=== PATIENT | male | born 1990 | race Caucasian/White ===

== ENCOUNTER 2019-08-17 09:21 | Day surgery (SDC) | payer BC, SELFPAY ==
[2019-08-02 07:59] VITALS: BMI 32.8
--- NOTE | 2019-08-02 08:06 | HP_ITS ---
Intake Vital Signs 08/02/19 Body Mass Index (BMI) 32.8 Intake Visit Reasons: Rectal Bleeding Chief Complaint: recheck rectal bleeding Personal Lines Underwriter Required: No Is patient in pain?: No Allergies venom-honey bee [bee venom (honey bee)] Allergy (Verified 08/02/19 07:59) Anaphylaxis Medications No Known/Unobtainable [No Known Home Medications] 03/16/16 [History Confirmed 08/02/19] [facility] Medical History Rectal bleeding (Acute) Hemorrhoids (Acute) Surgical History History of hernia repair (Acute) History of tonsillectomy and adenoidectomy (Acute) history excision cyst on chin (Acute) Family History Mother Heart disease Social History (Updated 08/02/19 @ 08:06 by Gagan Masterson MD) Smoking Status: Never smoker alcohol intake: current alcohol intake frequency: a few times a week Alcohol type: beer substance use type: does not use HPI HPI HPI: ABDELRAHMAN FANG, is a 28 M who presents to the office today for HPI HPI Surgical H&P: Yes HPI: ABDELRAHMAN FANG, is a 28 M who presents to the office today for Follow-up from a perianal excoriation. He has been using maximum strength Desitin at nighttime he still is not doing any warm soaks he has not noticed any improvement in his rectal bleeding. ROS General General: No weight change, appetite, fatigue, colon cancer, breast cancer or weakness HEENT HEENT: No difficulty swallowing, eye injury, eye surgery, swollen glands or hoarseness Endo Endocrine: No thyroid disease, diabetes mellitus, thyroid cancer, Hair loss, heat intolerance or cold intolerance Skin Skin: No rash or changing moles Breast Breast: No left breast lump, right breast lump, nipple discharge, breast pain, abnormal mammogram, abnormal US or breast enlargement Musc Musculoskeletal: No back problems, arthritis, rheumatoid arthritis, gout or joint pain Cardio Cardiovascular: No murmur, pacemaker, heart disease, atrial fibrillation, high blood pressure, heart attack, heart stent, palpitations, shortness of breat with exertion or chest pain Psych Psychiatric: No depression, anxiety or hearing voices Resp Respiratory: No shortness of breath, No sleep apnea, No cough, No COPD, No asthma, No emphysema, No wheezing Gastro Gastrointestinal: No abdominal pain, No nausea or vomiting, No diarrhea, No constipation, No blood in stool, No acid reflux, Yes hemorrhoids, No ulcers, No gallbladder problem, No black,tarry stools Vignesh Hematologic: No blood thinners, No blood disorders, No bleeding, No anemia, No blood clots Neuro Neurologic: No weakness Exam Const General: no acute distress, well developed, well hydrated Orientation: oriented to person, oriented to place, oriented to time [facility] Head: normocephalic, atraumatic Ears: external ears normal Mouth: moist mucous membranes Eyes Sclera: sclerae normal Pupils: normal by confrontation Neck Neck: no lymphadenopathy noted Neck mass: No Thyroid: thyroid normal, symmetrical Chest Chest palpation & inspection: normal inspection of the chest Breast Palpation: No nipple discharge Resp Effort & Inspection: normal respiratory effort Auscultation: clear to auscultation bilaterally Percussion: percussion normal Cardio Rate: regular rate Rhythm: regular rhythm Heart Sounds: no murmurs GI Palpation: soft, no hepatosplenomegaly, no masses, nontender Rectal Exam: other Other: Rectal exam deferred. Extrem General: normal to inspection, no clubbing, cyanosis or edema Assessment & Plan Problems 1. Rectal hemorrhage K62.5 2. Perianal excoriation S30.817A Plan I have discussed the above with the patient. I have offered the patient colonoscopy for evaluation. I have explained the risks/benefits of the procedure and described the procedure. I have discussed the risks with the patient, including but not limited to: infection, bleeding, perforation of the GI tract requiring emergency surgery, inability to complete the procedure, injury to any internal organs, complications of anesthesia, etc. - the patient understands and agrees to proceed. I have answered all the patient's questions to the patient's satisfaction and the patient has no further questions. The patient has been given instructions for the colon cleansing preparation. Coding Level of Care Code Off vis,est,level 3 Diagnoses Rectal hemorrhage K62.5 Perianal excoriation S30.817A 08/02/19 0806 <Electronically signed by Gagan leon MD> Date _ Gagan Masterson MD I have re-examined the patient. There are no clinical changes since date of exam.
[2019-08-17 09:56] VITALS: BP 135/78; PULSE 72; RESP 15; TEMP 37.1; O2SAT 98; BMI 37.6
[2019-08-17] MEDS: Lactated Ringers 1,000 ML 100 ML IV (10:08)
[2019-08-17 11:00] VITALS: BP 118/73; BP 135/78; PULSE 79; RESP 16; TEMP 36.8; O2SAT 97
[2019-08-17 11:05] VITALS: BP 130/71; BP 135/78; PULSE 86; RESP 16; O2SAT 97
--- NOTE | 2019-08-17 11:05 | OP.COLON_ITS ---
Patient Name: Alex Escobar Procedure Date: 08/17/2019 10:39 AM Date of : 1990 Age: 28 Procedure: Colonoscopy Indications: Rectal bleeding Providers: Gagan Masterson MD Referring MD: Geronimo Solorzano Iii Medicines: See the Anesthesia note for documentation of the administered medications Patient Profile: This is a 28 year old male. Refer to note in patient chart for documentation of history and physical. Last Colonoscopy: none. The patient's first colonoscopy is today. Complications: No immediate complications. Procedure: Pre-Anesthesia Assessment: - Prior to the procedure, a History and Physical was performed, and patient medications and allergies were reviewed. The patient's tolerance of previous anesthesia was also reviewed. The risks and benefits of the procedure and the sedation options and risks were discussed with the patient. All questions were answered, and informed consent was obtained. Prior Anticoagulants: The patient has taken no previous anticoagulant or antiplatelet agents. ASA Grade Assessment: II - A patient with mild systemic disease. After reviewing the risks and benefits, the patient was deemed in satisfactory condition to undergo the procedure. After I obtained informed consent, the scope was passed under direct vision. Throughout the procedure, the patient's blood pressure, pulse, and oxygen saturations were monitored continuously. The adult colonoscope was introduced through the anus and advanced to the cecum, identified by appendiceal orifice and ileocecal valve. The colonoscopy was performed without difficulty. The patient tolerated the procedure well. The quality of the bowel preparation was good. Scope In: 10:45:35 AM Scope Withdrawal Time 0 hours 6 minutes 7 seconds Scope Out: 10:56:29 AM Total Procedure Duration Time 0 hours 10 minutes 54 seconds Findings: An anal fissure was found on perianal exam. The patient still had significant amount of excoriation perianally. And a rectal fissure was newly found this time. He has been on zinc oxide for a long period of time but has not been effective in treating his perianal excoriation Non-bleeding internal hemorrhoids were found during retroflexion. The hemorrhoids were mild and small. The exam was otherwise without abnormality. Impression: - Anal fissure found on perianal exam. - The examination was otherwise normal on direct and retroflexion views. - No specimens collected. Recommendation: - Discharge patient to home. - Resume previous diet. - Continue present medications. - Await pathology results. - Repeat colonoscopy at appointment to be scheduled for screening purposes. - Return to my office in 1 week. Procedure Code(s): --- Professional --- 63747, Colonoscopy, flexible; diagnostic, including collection of specimen(s) by brushing or washing, when performed (separate procedure) Diagnosis Code(s): --- Professional --- K60.2, Anal fissure, unspecified K62.5, Hemorrhage of anus and rectum CPT copyright 2017 [employer]. All rights reserved. The codes documented in this report are preliminary and upon machine heel builder review may be revised to meet current compliance requirements. MD Gagan Mercedes MD 08/17/2019 11:04:30 AM This report has been signed electronically. Number of Addenda: 0 Note Initiated On: 08/17/2019 10:39 AM
[2019-08-17 11:10] VITALS: BP 122/83; BP 135/78; PULSE 73; RESP 16; O2SAT 98
[2019-08-17 11:15] VITALS: BP 126/85; BP 135/78; PULSE 71; RESP 16; TEMP 36.4; O2SAT 98
[2019-08-17 11:38] VITALS: BP 135/78
== END 2019-08-17 11:39 | disposition home or self-care (01) ==
LOC: EN 09:21 → AC 09:38
PROVIDERS: Family Provider Family Medicine; PCP Family Medicine; Referring Provider Family Medicine; Visit Provider Surgery
PROC: 0DJD8ZZ Inspection of Lower Intestinal Tract, Via Natural or Artificial Opening Endoscopic (ICD-10-PCS; CPT 45378; principal; 2019-08-17 10:40)
DX: K60.2 Anal fissure, unspecified (principal); S30.817A Abrasion of anus, initial encounter; X58.XXXA Exposure to other specified factors, initial encounter; Y93.9 Activity, unspecified; Y92.9 Unspecified place or not applicable; K64.8 Other hemorrhoids
CPT/HCPCS: 45378; J7120

== ENCOUNTER 2019-09-03 07:47 | Emergency (ER) | payer BC, SELFPAY ==
[2019-09-03 07:48] VITALS: BP 154/81; PULSE 74; RESP 18; TEMP 36.8; O2SAT 96; BMI 38.2
[2019-09-03] MEDS: MethylPREDNISolone 125 MG/2 ML Vial IV (08:30)
[2019-09-03] MEDS: Famotidine 200 MG/20 ML MDV 20 MG in 0.9% Normal Saline (Pres. free 8 ML 300 MG IV (08:30)
[2019-09-03] MEDS: DiphenhydrAMINE 50 MG/ML Syringe IV (08:30)
[2019-09-03] MEDS: 0.9% Normal Saline 1,000 ML 999 ML IV (08:33)
--- NOTE | 2019-09-03 08:45 | ED.DCSUM_ITS ---
- ER Visit Summary Date of Service: 09/03/19 Chief Complaint: Bee sting History of Present Illness: The patient is a [address] Geronimo Solorzano. Reports at 7:00 this morning he was putting on a hunting coat when he was stung by a bee to the anterior surface of his right wrist. States that he had severe reactions in the past. Currently he denies any rash other than where the sting was. He denies chest pain or shortness of breath. He is not lightheaded. On review of systems patient reports that he has a cough is been present for approximately 1 week. Is productive of white sputum without blood. He denies any shortness of breath. He does have nasal congestion. He reports the symptoms are improving. He denies any fever or chills. Physical Examination: Vitals: Stable. Afebrile. General: Well-nourished and well-developed. Head: Normocephalic atraumatic. Neck: Supple, no lymphadenopathy. No JVD. Nontender. Cardiovascular: Regular rate and rhythm. No murmurs. Respiratory: No respiratory distress. Clear to auscultation bilaterally. Abdominal: Soft, nontender, nondistended, normal bowel sounds. No guarding, rebound, or peritoneal signs. Back: Nontender. Extremities: Nontender, no edema. Skin: 3 cm erythematous lesion to the anterior surface of his right wrist where he was stung. There are no other urticarial lesions. He does have erythema just nasolabial folds bilaterally consistent with seborrheic dermatitis. Neurologic: Alert and oriented ?3. Cranial nerves II through XII are intact. Normal strength and sensation. Psych: Normal affect. Emergency Department Course and Treatment: Patient had an IV placed. He was given Solu-Medrol, Benadryl, and Pepcid IV. His symptoms have completely resolved. Treatment Plan: Patient will be discharged on a 5-day burst of prednisone, Zyrtec, and Pepcid. He is also given a prescription for ketoconazole for the seborrheic dermatitis. Instructed to follow-up with his primary care physician 1 to 2 days if not improving. Return to the emergency department for any worsening symptoms. Disposition: To home in improved and stable condition. Impression: 1. Localized reaction to bee sting. 2. Seborrheic dermatitis. This note was generated with [employer] software. It may contain incorrect words, spelling, and punctuation that were not noted in review of the chart prior to signing ED Disposition - Plan for ED Patient: Instructions: ALLERGIC REACTION, Insect (Local) Prescriptions: Prednisone [Deltasone] 60 mg PO DAILY #15 tablet Ketoconazole [Nizoral Cream] 1 applic TOPICAL BID #1 tube Famotidine [Pepcid] 20 mg PO BID #28 tablet Cetirizine HCl [Zyrtec] 10 mg PO DAILY #14 capsule Referrals: Geronimo Solorzano III, MD [Primary Care Provider] - 1-2 Days if not improving
[2019-09-03 09:15] VITALS: BP 138/88; PULSE 76; RESP 23; O2SAT 97
== END 2019-09-03 10:02 | disposition home or self-care (01) ==
LOC: ED 08:28
PROVIDERS: Emergency Provider Emergency Medicine; Family Provider Family Medicine; PCP Family Medicine
DX: T63.441A Toxic effect of venom of bees, accidental (unintentional), initial encounter (principal); L21.9 Seborrheic dermatitis, unspecified; Y92.9 Unspecified place or not applicable; R05 Cough; R09.81 Nasal congestion
CPT/HCPCS: 96361; 96374; 96375; 99283; J7030; J7050; A4216; J3490

== ENCOUNTER 2019-12-17 06:02 | Emergency (ER) | payer BC, SELFPAY ==
[2019-11-14 13:33] VITALS: BMI 38.2
[2019-12-17 06:03] VITALS: BP 156/88; PULSE 102; RESP 16; TEMP 36.7; O2SAT 97; BMI 39.2
--- NOTE | 2019-12-17 06:20 | ED.VIS.GEN ---
History of Present Illness Chief Complaint: GI Bleed Detail of Chief Complaint: rectal bleeding Informant: Patient Onset: Today Timing: Intermittent - x2 Quality: BRBPR Location: anal Current Severity: gone Maximum Severity: Moderate Worsened by: unk Relieved by: unk Associated Symptoms: none Narrative: Patient had an anal fissure surgery done 5-6 days ago at [facility]. He has had some postoperative soreness but nothing major. 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 He noticed at one point he felt wet and went to the bathroom and there was blood. He had everything wiped up and it was fine. Later he noticed more blood. He presents for evaluation of this as directed by his surgeon if he had any issues. It is early Thursday morning when he presents. He denies any abdominal symptoms, fevers, or other discharge. He shows me a picture of toilet tissue that has blood on it but is certainly not saturated. - Past Medical History (1) Anal fissure Status: Chronic Past Medical History - Allergies and Home Meds Allergies/Adverse Reactions: Allergies venom-honey bee [bee venom (honey bee)] Allergy (Verified 12/17/19 06:08) Anaphylaxis Primary Care Physician: Geronimo Solorzano III, MD [Primary Care Provider] - Surgical History: - - Anal fissure Lives: Alone Smoking Status: Never smoker Review of Systems General: Reports: Malaise - feeling weird this AM, may be my nerves. Denies: Chills, Fever, Sweats Eyes: Denies: Visual changes - bilaterally, Diplopia ENT: Denies: Rhinorrhea, Sore throat Cardiovascular: Denies: Chest pain, Palpitations Respiratory: Denies: Dyspnea, Cough, Dyspnea on exertion Gastrointestinal: Reports: Hematochezia, - - postoperative perianal pain, no worse. Denies: Abdominal pain, Nausea, Vomiting, Diarrhea, Melena Genitourinary: Denies: Dysuria, Hematuria, Frequency Musculoskeletal: Denies: Back pain, Swelling, Extremity Pain Skin: Denies: Rash, Wounds Neurological: Denies: Headache, Weakness, Numbness Physical Exam Vital Signs/Narrative: Vital Signs Temp Pulse Resp BP Pulse Ox 12/17/19 06:03 98.1 F 102 H 16 156/88 H 97 Inital Vital Signs reviewed: Yes General: Well nourished, Well developed, No Acute Distress Head: Normocephalic, Atraumatic Eyes: Perrl, EOMI ENT: Moist mucous membranes, No rhinorrhea Cardiovascular: Regular rate, Regular rhythm, No murmurs. Negative for: Tachycardia Respiratory: No distress, CTA bilaterally, Chest nontender Abdomen: Soft, Nontender, Nondistended, Normal bowel sounds Rectal: - - Postoperative anal fissure noted at the 3 o'clock position, there is minimal tenderness in this area, consistent with postoperative state. With firm palpation, there is no discharge or bleeding. There is no collection. No abscess. No erythema or signs of infection. The rest of the perianal area is nontender and benign-appearing. Back: Nontender, Normal Inspection Extremities: Nontender, No edema Skin: Normal color, No rash, No Trauma Neurological: Alert, Oriented x3, Cranial nerves II-XII grossly intact, Normal Strength, Normal Sensation, Normal Gait Psychological: Normal affect, Normal Mood Diagnostic/Tx/Re-eval Laboratory Tests 12/17/19 12/17/19 Range/Units 06:30 06:30 WBC 11.2 H (4.4-11.0) K/mm3 RBC 4.89 (4.6-6.2) M/mm3 Hgb 14.4 (13.0-16.5) g/dL Hct 43.0 (40-54) % MCV 87.9 (80-94) fL MCH 29.4 (27.0-32.0) pg MCHC 33.5 (32-36) g/dL RDW Std Deviation 41.3 (35.1-43.9) fl RDW Coeff of Gisela 13.0 (11.6-14.6) % Plt Count 310 (150-450) K/mm3 MPV 9.6 (6.2-12.0) fl Immature Gran % (Auto) 0.700 (0.0-0.9) % Neut % (Auto) 63.8 (47-70) % Lymph % (Auto) 25.6 (19-41) % [place] % (Auto) 6.4 (0-10) % Eos % (Auto) 3.0 (0-5) % Baso % (Auto) 0.5 (0-1) % Absolute Neuts (auto) 7.1 (2.0-7.7) X10^3/uL Absolute Lymphs (auto) 2.85 (0.83-4.51) X10^3/uL Nucleated RBC % 0 (0-5) % Sodium 137 (136-145) mmol/L Potassium 4.6 (3.5-5.1) mmol/L Chloride 106 (98-107) mmol/L Carbon Dioxide 27.0 (21.0-32.0) mmol/L Anion Gap 4 L (5-15) BUN 14 (7-18) mg/dL Creatinine 0.95 (0.70-1.30) mg/dL Estim Creat Clear Calc 106.30 ml/min Est GFR (MDRD) Af Amer 120 (>60) mL/min Est GFR (MDRD) Non-Af 99 (>60) mL/min BUN/Creatinine Ratio 14.8 (10-20) RATIO Glucose 120 H (74-106) mg/dL Calcium 8.3 L (8.5-10.1) mg/dL - Medical Decision Making Patient's exam is very benign. It appears to be a very healthy appearing postoperative wound that is very small, radiating around 1 cm from the anal cleft. It does not appear to be contaminated or infected and there is no active bleeding or evidence that it recently bled at all on exam. Patient was worried so we decided to check some blood counts, they came back looking very normal with regards to his red blood count. He has a mild leukocytosis that is nonspecific. I reassured him that he may be safely discharged to follow-up with his surgeon after the weekend. It is possible he had a small seroma that let loose, it is possible it was simply irritated from sitting for extended periods, or it could have been the vibrations from the tow motor while sitting on the operative wound. ED Disposition - Plan for ED Patient: Disposition: Home or Assisted Living Diagnosis: Encounter for postoperative wound check, Postoperative hemorrhage of anus Instructions: POST OP WOUND CHECK, Bleeding Referrals: Geronimo Solorzano III, MD [Primary Care Provider] - Surgeon, your [Other] (After the weekend contact to discuss)
[2019-12-17 06:36] LABS: Absolute Lymphocyte Count 2.85 X10^3/uL (0.83-4.51); Absolute Neutrophil Count 7.1 X10^3/uL (2.0-7.7); Basophil# 0.06 X10^3/uL; Basophil% 0.5 % (0-1); Eosinophil# 0.33 X10^3/uL; Hemoglobin 14.4 g/dL (13.0-16.5); Lymphocyte # 2.85 X10^3/ul (4.0); Lymphocyte % 25.6 % (19-41); Mean Corp Hgb Conc 33.5 g/dL (32-36); Mean Corpuscular Hgb 29.4 pg (27.0-32.0); Mean Corpuscular Volume 87.9 fL (80-94); Mean Platelet Vol. 9.6 fl (6.2-12.0); Monocyte# 0.71 X10^3/uL; Monocyte% 6.4 % (0-10); NRBC Flagged by Analyzer 0 % (0-5); Neutrophil # 7.12 X10^3/uL (2.7-7.7); Neutrophil % 63.8 % (47-70); Platelet Count 310 K/mm3 (150-450); RBC Distribution Width SD 41.3 fl (35.1-43.9); Red Blood Count 4.89 M/mm3 (4.6-6.2); White Blood Count 11.2 K/mm3 (4.4-11.0)
[2019-12-17 06:50] LABS: Anion Gap 4 (5-15); BUN 14 mg/dL (7-18); BUN/Creat Ratio 14.8 RATIO (10-20); Calcium,Total 8.3 mg/dL (8.5-10.1); Chloride 106 mmol/L (98-107); Creatinine, Serum 0.95 mg/dL (0.70-1.30); EST Glomerular Filtration Rate 99 mL/min (>60); Est Glom Filt Rate - Afr Amer 120 mL/min (>60); Glucose 120 mg/dL (74-106); Potassium 4.6 mmol/L (3.5-5.1); Sodium Level 137 mmol/L (136-145)
== END 2019-12-17 07:00 | disposition home or self-care (01) ==
PROVIDERS: Emergency Provider Emergency Medicine; PCP Family Medicine
DX: K60.2 Anal fissure, unspecified (principal); Z98.890 Other specified postprocedural states
CPT/HCPCS: 36415; 80048; 85025; 99282